=== PATIENT | male | born 1975 | race Caucasian/White ===

== ENCOUNTER 2017-10-26 21:37 | Emergency (ER) | payer OTHER ==
[~2017-10-26] VITALS: Ht 175.3 cm; Wt 103.4 kg
[~2017-10-26 21:37] MED LIST: ACID REDUCER 1150 MG PO; NAPROSYN500 MG PO; NORCO 7.5/321 TABLET PO; PERCOCET 5/31 TABLET PO
[2017-10-26 22:09] LABS: HEMATOCRIT 42.2 % (38.0-50.0); MCH 28.2 PG (29.0-34.0); MCHC 34.4 G/DL (30.0-36.0); MCV 81.9 FL (86-99); MEAN PLAT.VOLUME 10.2 uM^3 (9.0-12.4); PLATELET COUNT 214 K/uL (156-360); RBC DIS.WIDTH-CV 13.2 % (11.8-14.6); RBC DIS.WIDTH-SD 39.1 % (39-53); RED BLOOD COUNT 5.15 M/uL (4.00-5.50); WHITE BLOOD COUNT 9.5 K/uL (4.1-10.2)
[2017-10-26 22:20] LABS: CHLORIDE 108 mEq/L (99-109); POTASSIUM 3.6 mEq/L (3.7-5.4); SODIUM 142 mEq/L (136-147)
[2017-10-26 22:22] LABS: GLUCOSE 123 mg/dL (70-99)
[2017-10-26 22:23] LABS: ANION GAP 11 MEQ/L (2-14)
[2017-10-26 22:26] LABS: GFR ESTIMATE (CALCULATED) > 59 mL/min/ (58.99-99999)
[2017-10-26 22:27] LABS: UREA NITROGEN (BUN) 17 mg/dL (9-23)
[2017-10-27 00:52] LABS: ADD MIUA? NO; BILIRUBIN NEGATIVE; BLOOD NEGATIVE; COLOR YELLOW ((YELLOW)); GLUCOSE (STRIP) NEGATIVE; KETONES NEGATIVE; LEUKOCYTES NEGATIVE; NITRITE NEGATIVE; PROTEIN (STRIP) NEGATIVE; UCUL ADDED? NO; UROBILINOGEN 0.2 MG/DL (0.2-1.0)
[2017-10-27 01:13] VITALS: BP 132/84
== END 2017-10-27 01:36 | disposition home or self-care (01) ==
LOC: EME 21:37
PROVIDERS: Physician Assistant
DX: R10.31 Right lower quadrant pain (principal); K21.9 Gastro-esophageal reflux disease without esophagitis
CPT/HCPCS: 74177; 80048; 81003; 85027; 99281; 99284; J7030